=== PATIENT | female | born 1965 | race Asian ===

== ENCOUNTER 2017-01-23 06:00 | Day surgery (SDC) | payer OTHER ==
[~2017-01-23] VITALS: Ht 160 cm; Wt 55.3 kg
[2017-01-23 06:44] LABS: BASOPHILS # (AUTO) 0.1 K/uL (0.00-0.22); BASOPHILS % (AUTO) 2.3 % (0.0-2.0); EOSINOPHILS # (AUTO) 0.4 K/uL (0-0.4); EOSINOPHILS % (AUTO) 6.4 % (0.0-4.0); HEMATOCRIT 37.1 % (36-48); HEMOGLOBIN 11.6 g/dL (12.0-16.0); LYMPHOCYTES # (AUTO) 2.5 K/uL (2.5-16.5); LYMPHOCYTES % (AUTO) 39.1 % (20.5-51.1); MEAN CORPUSCULAR HEMOGLOBIN 21 pg (27-31); MEAN CORPUSCULAR HGB CONC 31 g/dL (33-37); MEAN CORPUSCULAR VOLUME 68 fL (80-94); MONOCYTES # (AUTO) 0.4 K/uL (0.8-1.0); MONOCYTES % (AUTO) 6.9 % (1.7-9.3); NEUTROPHILS # (AUTO) 3.1 K/uL (1.8-7.7); NEUTROPHILS % (AUTO) 45.3 % (42.2-75.2); PLATELET COUNT (AUTO) 243 K/uL (140-450); RED BLOOD CELL COUNT(AUTO) 5.47 MIL/uL (4.20-5.40); RED CELL DISTRIBUTION WIDTH 14.3 % (11.6-13.7); WHITE BLOOD COUNT (AUTO) 6.5 K/uL (4.8-10.8)
[2017-01-23] MEDS ORDERED: IBUP800T99 PO (06:51)
[2017-01-23] MEDS ORDERED: [UNRECOGNIZED DRUG - CODE] PO (06:51)
[2017-01-23] MEDS ORDERED: RABE20EC PO (06:51)
[2017-01-23 07:00] LABS: ALBUMIN 3.5 g/dL (3.4-5.0); ANION GAP 9.3 (8-16); BILIRUBIN,DIRECT 0.1 mg/dL (0.0-0.3); CALCIUM 8.6 mg/dL (8.5-10.1); CARBON DIOXIDE 33.4 mmol/L (21-32); CREATININE 0.5 mg/dL (0.6-1.3); POTASSIUM 3.7 mmol/L (3.5-5.1); TOTAL BILIRUBIN 0.5 mg/dL (0.0-1.0); TOTAL PROTEIN, SERUM 7.4 g/dL (6.4-8.2)
[2017-01-23 07:13] LABS: INR 1.1 (0.8-1.2); PARTIAL THROMBOPLASTIN TIME 26.1 secs (22-35.6); PROTHROMBIN TIME 10.6 secs (10.8-13.4)
[2017-01-23] MEDS ORDERED: KETOROLAC 30 MG/ML VIAL IVP ONE (07:22)
[2017-01-23] MEDS ORDERED: DEXAMETHASONE 4 MG/ML VIAL IVP ONE (07:22)
[2017-01-23] MEDS ORDERED: PROPOFOL 200 MG/20 ML VIAL IV ONE (07:22)
[2017-01-23] MEDS ORDERED: ONDANSETRON 4 MG/2 ML VIAL IVP ONE (07:22)
[2017-01-23] MEDS ORDERED: SEVOFLURANE 250 ML BTL INH ONE (07:22)
[2017-01-23] MEDS ORDERED: fentaNYL 0.05 MG/ML VIAL ONE (07:30)
[2017-01-23] MEDS ORDERED: MORPHINE SULFATE 4 MG/ML SYR IM/IVP PRN (07:40)
[2017-01-23] MEDS ORDERED: IBUPROFEN 800 MG TAB PO PRN (07:40)
[2017-01-23] MEDS ORDERED: ACETAMINOPHEN/CODEINE 300/30MG 1 TAB PO PRN (07:40)
[2017-01-23] MEDS ORDERED: ONDANSETRON 4 MG/2 ML VIAL IVP PRN (07:40)
== END 2017-01-23 09:50 | disposition home or self-care (01) ==
LOC: MDS 06:00 → MMU 06:10 → MDS 09:50
PROVIDERS: ATTEND Obstetrics & Gynecology
DX: N95.0 Postmenopausal bleeding (principal)
CPT/HCPCS: 36415; 58120; 80053; 82248; 85025; 85610; 85730; J3010; J7120; J1100; J1885; J2405; J2704

== ENCOUNTER 2021-09-22 07:21 | Day surgery (SDC) | payer OTHER, SELFPAY ==
[~2021-09-22] VITALS: Ht 160 cm; Wt 56.2 kg
[~2021-09-22 07:21] MED LIST: IBUP-1801 PO; RABE20EC PO; TENO300T2 PO
[2021-09-22] MEDS ORDERED: fentaNYL citrate 0.05 MG/ML VIAL ONE (08:57)
[2021-09-22] MEDS ORDERED: MIDAZOLAM 5 MG/5 ML VIAL ONE (08:57)
[2021-09-22] MEDS ORDERED: MIDAZOLAM 2 MG/2 ML VIAL IVP ONE (11:55)
== END 2021-09-22 11:19 | disposition home or self-care (01) ==
LOC: MDS 07:21 → MMU 07:22 → MDS 11:19
PROVIDERS: ATTEND Internal Medicine Gastroenterology
DX: R13.10 Dysphagia, unspecified (principal); K20.90 Esophagitis, unspecified without bleeding; K22.89 Other specified disease of esophagus; K57.30 Diverticulosis of large intestine without perforation or abscess without bleeding; B19.10 Unspecified viral hepatitis B without hepatic coma; Z79.899 Other long term (current) drug therapy
CPT/HCPCS: 43235; 87426; J2250; J3010